=== PATIENT | male | born 1985 | race Caucasian/White ===

== ENCOUNTER 2017-05-12 16:00 | Inpatient (IN) | payer SELFPAY ==
[~2017-05-12] VITALS: Ht 182.9 cm; Wt 73.5 kg
[2017-05-12 16:21] VITALS: BP 145/100
[2017-05-12] MEDS ORDERED: CLON0.5T PO (16:23)
[2017-05-12] MEDS ORDERED: MVI, ADULT NO.4 WITH VIT K 10 ML, FOLIC ACID 1 MG, THIAMINE 100 MG in IV NORMAL SALINE ... IV ONE ×4 (16:30)
[2017-05-12] MEDS ORDERED: LORazepam 1 MG TABLET PO PRN ×2 (16:30)
[2017-05-12] MEDS ORDERED: LORazepam 2 MG/ML VIAL IV PRN ×4 (16:30)
[2017-05-12] MEDS: IV NORMAL SALINE 1,000ML 1,000 ML IV SCH ×2 (16:30→23:46)
[2017-05-12] MEDS: LORazepam 2 MG/ML VIAL IV PRN ×2 (16:50→21:54)
[2017-05-12 17:00] VITALS: BP 127/86
[2017-05-12 17:20] LABS: BASO # 0.1 x10^3/uL (0.0-0.2); BASO % 3 % (0-3); EOS % 1 % (0-3); HEMATOCRIT 45.7 % (39.0-53.0); HEMOGLOBIN 15.9 g/dL (13.0-17.5); LYMPH # 0.9 x10^3/uL (1.0-4.8); LYMPH % 45 % (24-48); MEAN CORPUSCULAR HEMOGLOBIN 35 pg (25-35); MEAN CORPUSCULAR HGB CONC 35 g/dL (31-37); MEAN CORPUSCULAR VOLUME 100 fL (79-100); MONO # 0.2 x10^3/uL (0.0-1.1); MONO % 11 % (0-9); NEUT # 0.9 x10^3uL (1.8-7.7); NEUT % 41 % (31-73); PLATELET COUNT 91 x10^3/uL (140-400); RED BLOOD COUNT 4.56 x10^6/uL (4.30-5.70); RED CELL DISTRIBUTION WIDTH 14.1 % (11.5-14.5); WHITE BLOOD COUNT 2.1 x10^3/uL (4.0-11.0)
[2017-05-12 17:38] LABS: ALBUMIN 4.4 g/dL (3.4-5.0); CALCIUM 8.8 mg/dL (8.5-10.1); CREATININE 0.8 mg/dL (0.7-1.3); GFR 112.8; MAGNESIUM 2.1 mg/dL (1.8-2.4); POTASSIUM 4.1 mmol/L (3.5-5.1); TOTAL BILIRUBIN 0.4 mg/dL (0.2-1.0); TOTAL PROTEIN 8.6 g/dL (6.4-8.2)
[2017-05-12] MEDS: MVI, ADULT NO.4 WITH VIT K 10 ML, THIAMINE 100 MG, FOLIC ACID 1 MG in IV NORMAL SALINE ... IV SCH ×4 (17:54)
[2017-05-12 18:00] VITALS: BP 106/62
[2017-05-12 19:30] LABS: BARBITURATES NEG (NEG); BENZODIAZEPINES NEG (NEG); CANNABINOIDS NEG (NEG); COCAINE NEG (NEG); METHADONE NEG (NEG); OPIATES NEG (NEG); PHENCYCLIDINE NEG (NEG)
[2017-05-12 19:31] LABS: AMPHETAMINE/METHAMPHETAMINE NEG (NEG)
[2017-05-12 21:12] LABS: % BANDS 1 % (0-9); % BASOS 1 % (0-3); % EOS 2 % (0-5); % LYMPHS 38 % (24-48); % MONOS 13 % (0-10); % SEGS 34 % (35-66)
[2017-05-12 21:20] LABS: PLT ESTIMATE DECREASED (ADEQUATE)
[2017-05-12 21:25] LABS: % ATYL 11 % (0-0)
[2017-05-12 21:35] VITALS: BP 141/87
[2017-05-12 21:35] LABS: CLARITY,URINE CLEAR; COLOR,URINE STRAW; GLUCOSE,URINE NEG (NEG)
[2017-05-12 21:40] LABS: BACTERIA,URINE 0 /HPF (0-FEW); BILIRUBIN,URINE NEG (NEG); NITRITE,URINE NEG (NEG); RBC,URINE 0 /HPF (0-2); UROBILINOGEN,URINE 0.2 mg/dL (0.2 mg/dL); WBC,URINE 0 /HPF (0-4)
[2017-05-12 22:35] VITALS: BP 114/88
[2017-05-12 23:35] VITALS: BP 109/65
[2017-05-13] VITALS (21 sets, daily range): BP systolic 96–172; BP diastolic 47–110
[2017-05-13] MEDS: LORazepam 2 MG/ML VIAL IV PRN ×9 (03:58→20:21)
[2017-05-13] MEDS: IV NORMAL SALINE 1,000ML 1,000 ML IV SCH ×3 (05:52→20:04)
[2017-05-13 07:02] LABS: BASO % 2 % (0-3); EOS % 1 % (0-3); HEMATOCRIT 41.1 % (39.0-53.0); HEMOGLOBIN 14.1 g/dL (13.0-17.5); LYMPH # 0.8 x10^3/uL (1.0-4.8); LYMPH % 47 % (24-48); MEAN CORPUSCULAR HEMOGLOBIN 35 pg (25-35); MEAN CORPUSCULAR HGB CONC 34 g/dL (31-37); MEAN CORPUSCULAR VOLUME 101 fL (79-100); MONO # 0.2 x10^3/uL (0.0-1.1); MONO % 10 % (0-9); NEUT # 0.7 x10^3uL (1.8-7.7); NEUT % 40 % (31-73); PLATELET COUNT 70 x10^3/uL (140-400); RED BLOOD COUNT 4.06 x10^6/uL (4.30-5.70); RED CELL DISTRIBUTION WIDTH 14.3 % (11.5-14.5)
[2017-05-13 07:04] LABS: CALCIUM 8.1 mg/dL (8.5-10.1); CREATININE 0.7 mg/dL (0.7-1.3); GFR 131.5; WHITE BLOOD COUNT 1.8 x10^3/uL (4.0-11.0)
[2017-05-13] MEDS ORDERED: PANTOPRAZOLE IV PUSH 40 MG VIAL. IVP SCH (07:30)
[2017-05-13] MEDS: PANTOPRAZOLE IV PUSH 40 MG VIAL. IVP SCH (08:26)
[2017-05-13] MEDS ORDERED: THIAMINE 100 MG in IV NORMAL SALINE 50ML 50 ML IV SCH (09:00)
[2017-05-13] MEDS ORDERED: THIAMINE IM 200 MG/2 ML VIAL. IM SCH (09:00)
[2017-05-13] MEDS ORDERED: MVI, ADULT NO.4 WITH VIT K 10 ML, THIAMINE 100 MG, FOLIC ACID 1 MG in IV NORMAL SALINE ... IV SCH ×8 (09:00)
[2017-05-13] MEDS ORDERED: FOLIC ACID 1 MG TABLET PO SCH (09:00)
[2017-05-13] MEDS ORDERED: MULTIVITAMIN with MINERAL TABLET. PO SCH (09:00)
[2017-05-13 09:18] LABS: % BANDS 2 % (0-9); % BASOS 3 % (0-3); % LYMPHS 49 % (24-48); % MONOS 11 % (0-10); % SEGS 35 % (35-66); PLT ESTIMATE DECREASED (ADEQUATE)
--- NOTE | 2017-05-13 09:38 | RAD ---
EXAM: Chest one view. HISTORY: Leukopenia, with overall. COMPARISON: None. FINDINGS: A frontal view of the chest is obtained. There are no confluent infiltrates. There is no pneumothorax or pleural effusion. The heart is not enlarged. IMPRESSION: 1. No confluent infiltrates.
[2017-05-13] MEDS: cloNIDine HCL 0.1 MG TABLET PO PRN ×3 (12:04→22:22)
[2017-05-13] MEDS: diphenhydrAMINE 50 MG/ML VIAL IVP PRN (12:05)
[2017-05-13] MEDS: MVI, ADULT NO.4 WITH VIT K 10 ML, THIAMINE 100 MG, FOLIC ACID 1 MG in IV NORMAL SALINE ... IV SCH ×4 (16:52)
[2017-05-13 19:26] LABS: CALCIUM 8.1 mg/dL (8.5-10.1); CREATININE 0.9 mg/dL (0.7-1.3); GFR 98.4; MAGNESIUM 1.6 mg/dL (1.8-2.4); POTASSIUM 3.8 mmol/L (3.5-5.1)
[2017-05-13] MEDS ORDERED: chlordiazePOXIDE HCL 25 MG CAPSULE PO PRN (21:15)
--- NOTE | 2017-05-13 21:38 | PDOC ---
Exam Basil Demential Exam: Basil Note: Please also refer to the separate dictated note~for this date of service dictated separately.~Patient seen individually. Discussed the patient with Nursing staff reviewed the chart.~Reviewed interim history and current functioning. Reviewed vital signs,~Labs/ Radiology~and current medications noted below. Continue current treatment with the changes noted in the dictated addendum note Assessment: Vital Signs: Vital Signs Date Time Temp Pulse Resp B/P (MAP) Pulse Ox O2 Delivery O2 Flow Rate FiO2 05/13/17 20:00 65 20 172/106 (128) 99 Room Air 05/13/17 19:00 98.1 05/12/17 17:00 I&O Intake and Output 05/14/17 07:00 Intake Total 2093 ml Output Total 600 ml Balance 1493 ml Intake Oral 390 ml IV Total 1703 ml Output Urine Total 600 ml Labs: Laboratory Tests Test 05/13/17 05:48 05/13/17 08:03 05/13/17 10:34 05/13/17 12:02 White Blood Count 1.8 x10^3/uL (4.0-11.0) *L Red Blood Count 4.06 x10^6/uL (4.30-5.70) L Hemoglobin 14.1 g/dL (13.0-17.5) Hematocrit 41.1 % (39.0-53.0) Mean Corpuscular Volume 101 fL (79-100) H Mean Corpuscular Hemoglobin 35 pg (25-35) Mean Corpuscular Hemoglobin Concent 34 g/dL (31-37) Red Cell Distribution Width 14.3 % (11.5-14.5) Platelet Count 70 x10^3/uL (140-400) L Neutrophils (%) (Auto) 40 % (31-73) Lymphocytes (%) (Auto) 47 % (24-48) Monocytes (%) (Auto) 10 % (0-9) H Eosinophils (%) (Auto) 1 % (0-3) Basophils (%) (Auto) 2 % (0-3) Neutrophils # (Auto) 0.7 x10^3uL (1.8-7.7) L Lymphocytes # (Auto) 0.8 x10^3/uL (1.0-4.8) L Monocytes # (Auto) 0.2 x10^3/uL (0.0-1.1) Eosinophils # (Auto) 0.0 x10^3/uL (0.0-0.7) Basophils # (Auto) 0.0 x10^3/uL (0.0-0.2) Segmented Neutrophils % 35 % (35-66) Band Neutrophils % 2 % (0-9) Lymphocytes % 49 % (24-48) H Monocytes % 11 % (0-10) H Basophils % 3 % (0-3) Platelet Estimate Decreased (ADEQUATE) Large Platelets Occ Macrocytosis Slight Sodium Level 142 mmol/L (136-145) Potassium Level 4.0 mmol/L (3.5-5.1) Chloride Level 105 mmol/L (98-107) Carbon Dioxide Level 27 mmol/L (21-32) Anion Gap 10 (6-14) Blood Urea Nitrogen 7 mg/dL (8-26) L Creatinine 0.7 mg/dL (0.7-1.3) Estimated GFR (Cockcroft-Gault) 131.5 Glucose Level 73 mg/dL (70-99) Calcium Level 8.1 mg/dL (8.5-10.1) L Lactic Acid Level 2.4 mmol/L (0.4-2.0) H 3.1 mmol/L (0.4-2.0) H Ammonia 19 mcmol/L (11-34) Test 05/13/17 17:05 05/13/17 19:05 05/13/17 20:12 Creatine Kinase 209 U/L (39-308) Creatine Kinase MB (Mass) 0.5 ng/mL (0.0-3.6) Creatine Kinase MB Relative Index 0.2 % (0-4) Troponin I Quantitative < 0.017 ng/mL (0-0.055) Sodium Level 138 mmol/L (136-145) Potassium Level 3.8 mmol/L (3.5-5.1) Chloride Level 102 mmol/L (98-107) Carbon Dioxide Level 30 mmol/L (21-32) Anion Gap 6 (6-14) Blood Urea Nitrogen 8 mg/dL (8-26) Creatinine 0.9 mg/dL (0.7-1.3) Estimated GFR (Cockcroft-Gault) 98.4 Glucose Level 111 mg/dL (70-99) H Calcium Level 8.1 mg/dL (8.5-10.1) L Magnesium Level 1.6 mg/dL (1.8-2.4) L Lactic Acid Level 1.4 mmol/L (0.4-2.0) Current Medications: Meds: Current Medications Multivitamins/ Minerals 10 ml/ Folic Acid 1 mg/ Thiamine HCl 100 mg/Sodium Chloride 1,011.2 ml @ 0 mls/hr 1X ONCE IV ; Start 05/12/17 at 16:30; Stop 05/12/17 at 17:19; Status DC Multivitamins/ Minerals 10 ml/ Thiamine HCl 100 mg/Folic Acid 1 mg/Sodium Chloride 1,011.2 ml @ 100 mls/ hr DAILY IV ; Start 05/13/17 at 09:00; Stop 05/13/17 at 09:00; Status DC Lorazepam (Ativan) 2 mg PRN Q1HR PRN IV For CIWA 8-14 Last administered on 05/13t 20:21; Start 05/12/17 at 16:30 Lorazepam (Ativan) 4 mg PRN Q1HR PRN IV For CIWA 15 or greater Last administered on 05/13/17t 15:13; Start 05/12/17 at 16:30 Pantoprazole Sodium (Protonix Vial) 40 mg DAILYAC IVP ; Start 05/13/17 at 07:30 ; Stop 05/13/17 at 07:30; Status DC Multivitamins/ Minerals 10 ml/ Thiamine HCl 100 mg/Folic Acid 1 mg/Sodium Chloride 1,011.2 ml @ 100 mls/ hr DAILY IV ; Start 05/13/17 at 09:00; Stop 05/13/17 at 09:00; Status DC Multivitamins/ Calcium (Thera-M Plus) 1 tab DAILY PO ; Start 05/13/17 at 09:00; Stop 05/13/17 at 09:00; Status DC Folic Acid (Folic Acid) 1 mg DAILY PO ; Start 05/13/17 at 09:00; Stop 05/13/17 at 09:00; Status DC Thiamine HCl 100 mg DAILY IM ; Start 05/13/17 at 09:00; Stop 05/13/17 at 09:00; Status DC Thiamine HCl 100 mg/Sodium Chloride 51 ml @ 100 mls/hr DAILY IV ; Start at 09:00; Stop 05/13/17 at 09:00; Status DC Lorazepam (Ativan) 4 mg PRN Q1HR PRN PO For CIWA 8-14; Start 05/12/17 at 16:30 ; Stop 05/12/17 at 17:20; Status DC Lorazepam (Ativan) 8 mg PRN Q1HR PRN PO For CIWA 15 or greater; Start 05/12/17 at 16:30; Stop 05/12/17 at 17:21; Status DC Lorazepam (Ativan) 2 mg PRN Q1HR PRN IV For CIWA 8-14; Start 05/12/17 at 16:30 ; Stop 05/12/17 at 17:22; Status DC Lorazepam (Ativan) 4 mg PRN Q1HR PRN IV For CIWA 15 or greater; Start 05/12/17 at 16:30; Stop 05/12/17 at 17:21; Status DC Haloperidol Lactate (Haldol) 5 mg PRN Q4HRS PRN IM Hallucinatns,Confusn, Delirium; Start 05/12/17 at 16:30 Diphenhydramine HCl (Benadryl) 25 mg PRN Q15MIN PRN IVP EPS symptoms 2'Haldol admin Last administered on 05/13/17 12:05; Start 05/12/17 at 16:30 Clonidine HCl (Catapres) 0.1 mg PRN Q1HR PRN PO SBP>180 OR DBP>100, MR X 3 Last administered on 05/13/17 18:11; Start 05/12/17 at 16:30 Lorazepam (Ativan) 2 mg PRN Q15MIN PRN IV COMM Last administered on 05/12/17 21:52; Start 05/12/17 at 16:30 Lorazepam (Ativan) 2 mg PRN Q15MIN PRN IV COMM; Start 05/12/17 at 16:30; Stop 05/12/17 at 17:04; Status DC Diazepam (Valium) 5 mg PRN Q5MIN PRN IV COMM; Start 05/12/17 at 16:30; Stop at 17:11; Status DC Diazepam (Valium) 10 mg PRN Q5MIN PRN IV COMM; Start 05/12/17 at 16:30; Stop 05/12/17 at 17:11; Status DC Lorazepam 100 mg/ Sodium Chloride 150 ml @ 3 mls/hr CONT PRN IV PROTOCOL; Start 05/12/17 at 16:30; Stop 05/12/17 at 17:10; Status DC Sodium Chloride 1,000 ml @ 150 mls/hr Q6H40M IV Last administered on 20:04; Start 05/12/17 at 16:30 Pantoprazole Sodium (Protonix Vial) 40 mg DAILYAC IVP Last administered on 05/13 08:26; Start 05/13/17 at 07:30 Multivitamins/ Minerals 10 ml/ Thiamine HCl 100 mg/Folic Acid 1 mg/Sodium Chloride 1,011.2 ml @ 100 mls/ hr Q24H IV Last administered on 05/13/17 16:52 ; Start 05/12/17 at 18:00 Ceftriaxone Sodium 1 gm/ Sodium Chloride 50 ml @ 100 mls/hr Q24H IV Last administered on 05/13/17 09:20; Start 05/13/17 at 09:00 Levofloxacin/ Dextrose 150 ml @ 150 mls/hr Q24H IV ; Start 05/13/17 at 09:00; Status Cancel Levofloxacin/ Dextrose 150 ml @ 150 mls/hr Q24H IV Last administered on 09:20; Start 05/13/17 at 10:00 Chlordiazepoxide (Librium) 25 mg PRN Q6HRS PRN PO WITHDRAWAL IRRITABILITY Last administered on 05/13/17 21:30; Start 05/13/17 at 21:15 Active Scripts Active Reported Klonopin (Clonazepam) 0.5 Mg Tablet 1 Tab PO DAILY Diagnosis: Problems: (1) Alcohol abuse JOHANNA BEJARANO MD May 13, 2017 21:38
[2017-05-13] MEDS: HALOPERIDOL LACT 5 MG/ML VIAL. IM PRN (22:23)
[2017-05-14] VITALS (20 sets, daily range): BP systolic 137–172; BP diastolic 84–110
[2017-05-14] MEDS: IV NORMAL SALINE 1,000ML 1,000 ML IV SCH ×3 (02:06→11:10)
[2017-05-14] MEDS: cloNIDine HCL 0.1 MG TABLET PO PRN ×2 (02:07→06:07)
[2017-05-14 06:28] LABS: BASO % 1 % (0-3); EOS % 1 % (0-3); HEMATOCRIT 39.9 % (39.0-53.0); LYMPH # 0.8 x10^3/uL (1.0-4.8); LYMPH % 32 % (24-48); MEAN CORPUSCULAR HEMOGLOBIN 35 pg (25-35); MEAN CORPUSCULAR HGB CONC 35 g/dL (31-37); MEAN CORPUSCULAR VOLUME 100 fL (79-100); MONO # 0.3 x10^3/uL (0.0-1.1); MONO % 11 % (0-9); NEUT # 1.4 x10^3uL (1.8-7.7); NEUT % 54 % (31-73); PLATELET COUNT 58 x10^3/uL (140-400); RED CELL DISTRIBUTION WIDTH 13.6 % (11.5-14.5); WHITE BLOOD COUNT 2.5 x10^3/uL (4.0-11.0)
[2017-05-14 06:31] LABS: CALCIUM 8.2 mg/dL (8.5-10.1); CREATININE 0.8 mg/dL (0.7-1.3); GFR 112.8; POTASSIUM 3.6 mmol/L (3.5-5.1)
[2017-05-14] MEDS: LORazepam 2 MG/ML VIAL IV PRN ×6 (07:25→23:32)
[2017-05-14] MEDS: PANTOPRAZOLE IV PUSH 40 MG VIAL. IVP SCH (07:25)
[2017-05-14] MEDS: chlordiazePOXIDE HCL 25 MG CAPSULE PO PRN ×5 (07:26→20:54)
[2017-05-14] MEDS ORDERED: MAGNESIUM CHLORIDE ER 64 MG TABLET.ER PO SCH (09:00)
--- NOTE | 2017-05-14 09:17 | PDOC2 ---
CONSULT Date of Admission DATE: 05/14/17 TIME: 09:03 History of Present Illness Mr Eubanks is a 31 year old male admitted for ETOH detox. Last pm while up to commode he was noted to be tachycardic so consult was called. This am he is resting quietly in sinus rhythm. He recently received libruim and ativan and is sedated so unable to give history. Wakes easily but falls immediately back to sleep. History is given by his mother who is at bedside. He did state that he was lightheaded during the episode of elevated heart rate. Past Medical History anxiety, depression, ETOH abuse Past Surgical History tonsillectomy Family History father had HI in his 30's Social History non smoker, no illicit drugs, ETOH abuse Current Medications Current Medications Multivitamins/ Minerals 10 ml/ Folic Acid 1 mg/ Thiamine HCl 100 mg/Sodium Chloride 1,011.2 ml @ 0 mls/hr 1X ONCE IV ; Start 05/12/17 at 16:30; Stop 05/12/17 at 17:19; Status DC Multivitamins/ Minerals 10 ml/ Thiamine HCl 100 mg/Folic Acid 1 mg/Sodium Chloride 1,011.2 ml @ 100 mls/ hr DAILY IV ; Start 05/13/17 at 09:00; Stop 05/13/17 at 09:00; Status DC Lorazepam (Ativan) 2 mg PRN Q1HR PRN IV For CIWA 8-14 Last administered on 05/14t 07:25; Start 05/12/17 at 16:30 Lorazepam (Ativan) 4 mg PRN Q1HR PRN IV For CIWA 15 or greater Last administered on 05/13/17t 15:13; Start 05/12/17 at 16:30 Pantoprazole Sodium (Protonix Vial) 40 mg DAILYAC IVP ; Start 05/13/17 at 07:30 ; Stop 05/13/17 at 07:30; Status DC Multivitamins/ Minerals 10 ml/ Thiamine HCl 100 mg/Folic Acid 1 mg/Sodium Chloride 1,011.2 ml @ 100 mls/ hr DAILY IV ; Start 05/13/17 at 09:00; Stop 05/13/17 at 09:00; Status DC Multivitamins/ Calcium (Thera-M Plus) 1 tab DAILY PO ; Start 05/13/17 at 09:00; Stop 05/13/17 at 09:00; Status DC Folic Acid (Folic Acid) 1 mg DAILY PO ; Start 05/13/17 at 09:00; Stop 05/13/17 at 09:00; Status DC Thiamine HCl 100 mg DAILY IM ; Start 05/13/17 at 09:00; Stop 05/13/17 at 09:00; Status DC Thiamine HCl 100 mg/Sodium Chloride 51 ml @ 100 mls/hr DAILY IV ; Start at 09:00; Stop 05/13/17 at 09:00; Status DC Lorazepam (Ativan) 4 mg PRN Q1HR PRN PO For CIWA 8-14; Start 05/12/17 at 16:30 ; Stop 05/12/17 at 17:20; Status DC Lorazepam (Ativan) 8 mg PRN Q1HR PRN PO For CIWA 15 or greater; Start 05/12/17 at 16:30; Stop 05/12/17 at 17:21; Status DC Lorazepam (Ativan) 2 mg PRN Q1HR PRN IV For CIWA 8-14; Start 05/12/17 at 16:30 ; Stop 05/12/17 at 17:22; Status DC Lorazepam (Ativan) 4 mg PRN Q1HR PRN IV For CIWA 15 or greater; Start 05/12/17 at 16:30; Stop 05/12/17 at 17:21; Status DC Haloperidol Lactate (Haldol) 5 mg PRN Q4HRS PRN IM Hallucinatns,Confusn, Delirium Last administered on 05/13/17 22:23; Start 05/12/17 at 16:30 Diphenhydramine HCl (Benadryl) 25 mg PRN Q15MIN PRN IVP EPS symptoms 2'Haldol admin Last administered on 05/13/17 12:05; Start 05/12/17 at 16:30 Clonidine HCl (Catapres) 0.1 mg PRN Q1HR PRN PO SBP>180 OR DBP>100, MR X 3 Last administered on 05/14/17 06:07; Start 05/12/17 at 16:30 Lorazepam (Ativan) 2 mg PRN Q15MIN PRN IV COMM Last administered on 05/12/17 21:52; Start 05/12/17 at 16:30 Lorazepam (Ativan) 2 mg PRN Q15MIN PRN IV COMM; Start 05/12/17 at 16:30; Stop 05/12/17 at 17:04; Status DC Diazepam (Valium) 5 mg PRN Q5MIN PRN IV COMM; Start 05/12/17 at 16:30; Stop at 17:11; Status DC Diazepam (Valium) 10 mg PRN Q5MIN PRN IV COMM; Start 05/12/17 at 16:30; Stop 05/12/17 at 17:11; Status DC Lorazepam 100 mg/ Sodium Chloride 150 ml @ 3 mls/hr CONT PRN IV PROTOCOL; Start 05/12/17 at 16:30; Stop 05/12/17 at 17:10; Status DC Sodium Chloride 1,000 ml @ 150 mls/hr Q6H40M IV Last administered on 02:06; Start 05/12/17 at 16:30 Pantoprazole Sodium (Protonix Vial) 40 mg DAILYAC IVP Last administered on 05/14 07:25; Start 05/13/17 at 07:30 Multivitamins/ Minerals 10 ml/ Thiamine HCl 100 mg/Folic Acid 1 mg/Sodium Chloride 1,011.2 ml @ 100 mls/ hr Q24H IV Last administered on 05/13/17 16:52 ; Start 05/12/17 at 18:00 Ceftriaxone Sodium 1 gm/ Sodium Chloride 50 ml @ 100 mls/hr Q24H IV Last administered on 05/13/17 09:20; Start 05/13/17 at 09:00 Levofloxacin/ Dextrose 150 ml @ 150 mls/hr Q24H IV ; Start 05/13/17 at 09:00; Status Cancel Levofloxacin/ Dextrose 150 ml @ 150 mls/hr Q24H IV Last administered on 09:20; Start 05/13/17 at 10:00 Chlordiazepoxide (Librium) 25 mg PRN Q6HRS PRN PO WITHDRAWAL IRRITABILITY Last administered on 05/13/17 21:30; Start 05/13/17 at 21:15 Magnesium Chloride (Mag Delay) 64 mg DAILY PO ; Start 05/14/17 at 09:00 Chlordiazepoxide (Librium) 50 mg Q4HRS PRN PO ANXIETY / AGITATION Last administered on 05/14/17t 07:26; Start 05/14/17 at 07:30 Active Scripts Active Reported Klonopin (Clonazepam) 0.5 Mg Tablet 1 Tab PO DAILY Allergies: Coded Allergies: No Known Drug Allergies (Unverified , 05/12/17) Review of System unobtainable due to sedation General: No acute distress, Other (sedated) HEENT: Atraumatic Lungs: Other (Clear anteriorly) Heart: Regular rate, Normal S1, Normal S2, No murmurs, Other (no gallops, clicks or rubs) Abdomen: Normal bowel sounds, Soft Extremities: No cyanosis, No edema, Normal pulses Psych/Mental Status: Other (sedated) VITALS Vital Signs Date Time Temp Pulse Resp B/P (MAP) Pulse Ox O2 Delivery O2 Flow Rate FiO2 05/14/17 08:44 98.6 64 18 156/101 (119) 96 Room Air 05/12/17 17:00 Labs Laboratory Tests Test 05/12/17 16:15 05/12/17 16:20 05/12/17 16:45 05/13/17 05:48 Urine Collection Type Unknown Urine Color Straw Urine Clarity Clear Urine pH 5.5 Urine Specific Gibson <=1.005 Urine Protein Neg (NEG-TRACE) Urine Glucose (UA) Neg mg/dL (NEG) Urine Ketones (Stick) Neg mg/dL (NEG) Urine Blood Trace (NEG) Urine Nitrite Neg (NEG) Urine Bilirubin Neg (NEG) Urine Urobilinogen Dipstick 0.2 mg/dL (0.2 mg/dL) Urine Leukocyte Esterase Neg (NEG) Urine RBC 0 /HPF (0-2) Urine WBC 0 /HPF (0-4) Urine Squamous Epithelial Cells None /LPF Urine Bacteria 0 /HPF (0-FEW) Urine Opiates Screen Neg (NEG) Urine Methadone Screen Neg (NEG) Urine Barbiturates Neg (NEG) Urine Phencyclidine Screen Neg (NEG) Urine Amphetamine/Methamphetamine Neg (NEG) Urine Benzodiazepines Screen Neg (NEG) Urine Cocaine Screen Neg (NEG) Urine Cannabinoids Screen Neg (NEG) Urine Ethyl Alcohol Pos (NEG) Nasal Screen MRSA (PCR) Negative (Negative) White Blood Count 2.1 x10^3/uL (4.0-11.0) 1.8 x10^3/uL (4.0-11.0) Red Blood Count 4.56 x10^6/uL (4.30-5.70) 4.06 x10^6/uL (4.30-5.70) Hemoglobin 15.9 g/dL (13.0-17.5) 14.1 g/dL (13.0-17.5) Hematocrit 45.7 % (39.0-53.0) 41.1 % (39.0-53.0) Mean Corpuscular Volume 100 fL (79-100) 101 fL (79-100) Mean Corpuscular Hemoglobin 35 pg (25-35) 35 pg (25-35) Mean Corpuscular Hemoglobin Concent 35 g/dL (31-37) 34 g/dL (31-37) Red Cell Distribution Width 14.1 % (11.5-14.5) 14.3 % (11.5-14.5) Platelet Count 91 x10^3/uL (140-400) 70 x10^3/uL (140-400) Neutrophils (%) (Auto) 41 % (31-73) 40 % (31-73) Lymphocytes (%) (Auto) 45 % (24-48) 47 % (24-48) Monocytes (%) (Auto) 11 % (0-9) 10 % (0-9) Eosinophils (%) (Auto) 1 % (0-3) 1 % (0-3) Basophils (%) (Auto) 3 % (0-3) 2 % (0-3) Neutrophils # (Auto) 0.9 x10^3uL (1.8-7.7) 0.7 x10^3uL (1.8-7.7) Lymphocytes # (Auto) 0.9 x10^3/uL (1.0-4.8) 0.8 x10^3/uL (1.0-4.8) Monocytes # (Auto) 0.2 x10^3/uL (0.0-1.1) 0.2 x10^3/uL (0.0-1.1) Eosinophils # (Auto) 0.0 x10^3/uL (0.0-0.7) 0.0 x10^3/uL (0.0-0.7) Basophils # (Auto) 0.1 x10^3/uL (0.0-0.2) 0.0 x10^3/uL (0.0-0.2) Segmented Neutrophils % 34 % (35-66) 35 % (35-66) Band Neutrophils % 1 % (0-9) 2 % (0-9) Lymphocytes % 38 % (24-48) 49 % (24-48) Atypical Lymphocytes % (Manual) 11 % (0-0) Monocytes % 13 % (0-10) 11 % (0-10) Eosinophils % 2 % (0-5) Basophils % 1 % (0-3) 3 % (0-3) Platelet Estimate Decreased (ADEQUATE) Decreased (ADEQUATE) Macrocytosis Present Slight Sodium Level 141 mmol/L (136-145) 142 mmol/L (136-145) Potassium Level 4.1 mmol/L (3.5-5.1) 4.0 mmol/L (3.5-5.1) Chloride Level 99 mmol/L (98-107) 105 mmol/L (98-107) Carbon Dioxide Level 30 mmol/L (21-32) 27 mmol/L (21-32) Anion Gap 12 (6-14) 10 (6-14) Blood Urea Nitrogen 7 mg/dL (8-26) 7 mg/dL (8-26) Creatinine 0.8 mg/dL (0.7-1.3) 0.7 mg/dL (0.7-1.3) Estimated GFR (Cockcroft-Gault) 112.8 131.5 BUN/Creatinine Ratio 9 (6-20) Glucose Level 104 mg/dL (70-99) 73 mg/dL (70-99) Calcium Level 8.8 mg/dL (8.5-10.1) 8.1 mg/dL (8.5-10.1) Magnesium Level 2.1 mg/dL (1.8-2.4) Total Bilirubin 0.4 mg/dL (0.2-1.0) Aspartate Amino Transf (AST/SGOT) 281 U/L (15-37) Alanine Aminotransferase (ALT/SGPT) 187 U/L (16-63) Alkaline Phosphatase 45 U/L (46-116) Total Protein 8.6 g/dL (6.4-8.2) Albumin 4.4 g/dL (3.4-5.0) Albumin/Globulin Ratio 1.0 (1.0-1.7) Vitamin B12 Level 686 pg/mL (247-911) Serum Folate 13.34 ng/ml (3.2-20.0) Thyroxine (T4) 5.9 ug/dL (4.5-12.0) Large Platelets Occ Test 05/13/17 08:03 05/13/17 10:34 05/13/17 12:02 05/13/17 17:05 Lactic Acid Level 2.4 mmol/L (0.4-2.0) 3.1 mmol/L (0.4-2.0) Ammonia 19 mcmol/L (11-34) Creatine Kinase 209 U/L (39-308) Creatine Kinase MB (Mass) 0.5 ng/mL (0.0-3.6) Creatine Kinase MB Relative Index 0.2 % (0-4) Troponin I Quantitative < 0.017 ng/mL (0-0.055) Test 05/13/17 19:05 05/13/17 20:12 05/14/17 06:03 Sodium Level 138 mmol/L (136-145) 139 mmol/L (136-145) Potassium Level 3.8 mmol/L (3.5-5.1) 3.6 mmol/L (3.5-5.1) Chloride Level 102 mmol/L (98-107) 102 mmol/L (98-107) Carbon Dioxide Level 30 mmol/L (21-32) 30 mmol/L (21-32) Anion Gap 6 (6-14) 7 (6-14) Blood Urea Nitrogen 8 mg/dL (8-26) 7 mg/dL (8-26) Creatinine 0.9 mg/dL (0.7-1.3) 0.8 mg/dL (0.7-1.3) Estimated GFR (Cockcroft-Gault) 98.4 112.8 Glucose Level 111 mg/dL (70-99) 99 mg/dL (70-99) Calcium Level 8.1 mg/dL (8.5-10.1) 8.2 mg/dL (8.5-10.1) Magnesium Level 1.6 mg/dL (1.8-2.4) 1.7 mg/dL (1.8-2.4) Lactic Acid Level 1.4 mmol/L (0.4-2.0) White Blood Count 2.5 x10^3/uL (4.0-11.0) Red Blood Count 4.00 x10^6/uL (4.30-5.70) Hemoglobin 14.0 g/dL (13.0-17.5) Hematocrit 39.9 % (39.0-53.0) Mean Corpuscular Volume 100 fL (79-100) Mean Corpuscular Hemoglobin 35 pg (25-35) Mean Corpuscular Hemoglobin Concent 35 g/dL (31-37) Red Cell Distribution Width 13.6 % (11.5-14.5) Platelet Count 58 x10^3/uL (140-400) Neutrophils (%) (Auto) 54 % (31-73) Lymphocytes (%) (Auto) 32 % (24-48) Monocytes (%) (Auto) 11 % (0-9) Eosinophils (%) (Auto) 1 % (0-3) Basophils (%) (Auto) 1 % (0-3) Neutrophils # (Auto) 1.4 x10^3uL (1.8-7.7) Lymphocytes # (Auto) 0.8 x10^3/uL (1.0-4.8) Monocytes # (Auto) 0.3 x10^3/uL (0.0-1.1) Eosinophils # (Auto) 0.0 x10^3/uL (0.0-0.7) Basophils # (Auto) 0.0 x10^3/uL (0.0-0.2) Images CXR - no acute abn Assessment/Plan 1. SVT - on review of rhythm strips tachycardia appears more consistent with sinus tachycardia. 2. ETOH withdrawal 3. leukopenia 4. thrombocytopenia 5. hepatic insufficiency Will check echo and continue monitoring on telemetry. Most likely Sinus tachy is reactive. Withdrawal protocol as per PCP. Problems: SAVAGE SEE APRN May 14, 2017 09:17
[2017-05-14] MEDS ORDERED: MAGNESIUM SULFATE 1GM 100 ML IV ONE (09:45)
--- NOTE | 2017-05-14 15:17 | PDOC ---
Exam Basil Demential Exam: Basil Note: Please also refer to the separate dictated note~for this date of service dictated separately.~Patient seen individually. Discussed the patient with Nursing staff reviewed the chart.~Reviewed interim history and current functioning. Reviewed vital signs,~Labs/ Radiology~and current medications noted below. Continue current treatment with the changes noted in the dictated addendum note Assessment: Vital Signs: Vital Signs Date Time Temp Pulse Resp B/P (MAP) Pulse Ox O2 Delivery O2 Flow Rate FiO2 05/14/17 14:34 73 18 152/102 (119) 96 Room Air 05/14/17 12:25 98.2 05/12/17 17:00 I&O Intake and Output 05/15/17 07:00 Intake Total 2110 ml Output Total 1950 ml Balance 160 ml Intake Oral 960 ml IV Total 1150 ml Output Urine Total 1950 ml # Bowel Movements 1 Labs: Laboratory Tests Test 05/13/17 17:05 05/13/17 19:05 05/13/17 20:12 05/14/17 06:03 Creatine Kinase 209 U/L (39-308) Creatine Kinase MB (Mass) 0.5 ng/mL (0.0-3.6) Creatine Kinase MB Relative Index 0.2 % (0-4) Troponin I Quantitative < 0.017 ng/mL (0-0.055) Sodium Level 138 mmol/L (136-145) 139 mmol/L (136-145) Potassium Level 3.8 mmol/L (3.5-5.1) 3.6 mmol/L (3.5-5.1) Chloride Level 102 mmol/L (98-107) 102 mmol/L (98-107) Carbon Dioxide Level 30 mmol/L (21-32) 30 mmol/L (21-32) Anion Gap 6 (6-14) 7 (6-14) Blood Urea Nitrogen 8 mg/dL (8-26) 7 mg/dL (8-26) L Creatinine 0.9 mg/dL (0.7-1.3) 0.8 mg/dL (0.7-1.3) Estimated GFR (Cockcroft-Gault) 98.4 112.8 Glucose Level 111 mg/dL (70-99) H 99 mg/dL (70-99) Calcium Level 8.1 mg/dL (8.5-10.1) L 8.2 mg/dL (8.5-10.1) L Magnesium Level 1.6 mg/dL (1.8-2.4) L 1.7 mg/dL (1.8-2.4) L Lactic Acid Level 1.4 mmol/L (0.4-2.0) White Blood Count 2.5 x10^3/uL (4.0-11.0) L Red Blood Count 4.00 x10^6/uL (4.30-5.70) L Hemoglobin 14.0 g/dL (13.0-17.5) Hematocrit 39.9 % (39.0-53.0) Mean Corpuscular Volume 100 fL (79-100) Mean Corpuscular Hemoglobin 35 pg (25-35) Mean Corpuscular Hemoglobin Concent 35 g/dL (31-37) Red Cell Distribution Width 13.6 % (11.5-14.5) Platelet Count 58 x10^3/uL (140-400) L Neutrophils (%) (Auto) 54 % (31-73) Lymphocytes (%) (Auto) 32 % (24-48) Monocytes (%) (Auto) 11 % (0-9) H Eosinophils (%) (Auto) 1 % (0-3) Basophils (%) (Auto) 1 % (0-3) Neutrophils # (Auto) 1.4 x10^3uL (1.8-7.7) L Lymphocytes # (Auto) 0.8 x10^3/uL (1.0-4.8) L Monocytes # (Auto) 0.3 x10^3/uL (0.0-1.1) Eosinophils # (Auto) 0.0 x10^3/uL (0.0-0.7) Basophils # (Auto) 0.0 x10^3/uL (0.0-0.2) Current Medications: Meds: Current Medications Multivitamins/ Minerals 10 ml/ Folic Acid 1 mg/ Thiamine HCl 100 mg/Sodium Chloride 1,011.2 ml @ 0 mls/hr 1X ONCE IV ; Start 05/12/17 at 16:30; Stop 05/12/17 at 17:19; Status DC Multivitamins/ Minerals 10 ml/ Thiamine HCl 100 mg/Folic Acid 1 mg/Sodium Chloride 1,011.2 ml @ 100 mls/ hr DAILY IV ; Start 05/13/17 at 09:00; Stop 05/13/17 at 09:00; Status DC Lorazepam (Ativan) 2 mg PRN Q1HR PRN IV For CIWA 8-14 Last administered on 05/14t 14:30; Start 05/12/17 at 16:30 Lorazepam (Ativan) 4 mg PRN Q1HR PRN IV For CIWA 15 or greater Last administered on 05/13/17t 15:13; Start 05/12/17 at 16:30 Pantoprazole Sodium (Protonix Vial) 40 mg DAILYAC IVP ; Start 05/13/17 at 07:30 ; Stop 05/13/17 at 07:30; Status DC Multivitamins/ Minerals 10 ml/ Thiamine HCl 100 mg/Folic Acid 1 mg/Sodium Chloride 1,011.2 ml @ 100 mls/ hr DAILY IV ; Start 05/13/17 at 09:00; Stop 05/13/17 at 09:00; Status DC Multivitamins/ Calcium (Thera-M Plus) 1 tab DAILY PO ; Start 05/13/17 at 09:00; Stop 05/13/17 at 09:00; Status DC Folic Acid (Folic Acid) 1 mg DAILY PO ; Start 05/13/17 at 09:00; Stop 05/13/17 at 09:00; Status DC Thiamine HCl 100 mg DAILY IM ; Start 05/13/17 at 09:00; Stop 05/13/17 at 09:00; Status DC Thiamine HCl 100 mg/Sodium Chloride 51 ml @ 100 mls/hr DAILY IV ; Start at 09:00; Stop 05/13/17 at 09:00; Status DC Lorazepam (Ativan) 4 mg PRN Q1HR PRN PO For CIWA 8-14; Start 05/12/17 at 16:30 ; Stop 05/12/17 at 17:20; Status DC Lorazepam (Ativan) 8 mg PRN Q1HR PRN PO For CIWA 15 or greater; Start 05/12/17 at 16:30; Stop 05/12/17 at 17:21; Status DC Lorazepam (Ativan) 2 mg PRN Q1HR PRN IV For CIWA 8-14; Start 05/12/17 at 16:30 ; Stop 05/12/17 at 17:22; Status DC Lorazepam (Ativan) 4 mg PRN Q1HR PRN IV For CIWA 15 or greater; Start 05/12/17 at 16:30; Stop 05/12/17 at 17:21; Status DC Haloperidol Lactate (Haldol) 5 mg PRN Q4HRS PRN IM Hallucinatns,Confusn, Delirium Last administered on 05/13/17 22:23; Start 05/12/17 at 16:30 Diphenhydramine HCl (Benadryl) 25 mg PRN Q15MIN PRN IVP EPS symptoms 2'Haldol admin Last administered on 05/13/17 12:05; Start 05/12/17 at 16:30 Clonidine HCl (Catapres) 0.1 mg PRN Q1HR PRN PO SBP>180 OR DBP>100, MR X 3 Last administered on 05/14/17 06:07; Start 05/12/17 at 16:30 Lorazepam (Ativan) 2 mg PRN Q15MIN PRN IV COMM Last administered on 05/12/17 21:52; Start 05/12/17 at 16:30 Lorazepam (Ativan) 2 mg PRN Q15MIN PRN IV COMM; Start 05/12/17 at 16:30; Stop 05/12/17 at 17:04; Status DC Diazepam (Valium) 5 mg PRN Q5MIN PRN IV COMM; Start 05/12/17 at 16:30; Stop at 17:11; Status DC Diazepam (Valium) 10 mg PRN Q5MIN PRN IV COMM; Start 05/12/17 at 16:30; Stop 05/12/17 at 17:11; Status DC Lorazepam 100 mg/ Sodium Chloride 150 ml @ 3 mls/hr CONT PRN IV PROTOCOL; Start 05/12/17 at 16:30; Stop 05/12/17 at 17:10; Status DC Sodium Chloride 1,000 ml @ 150 mls/hr Q6H40M IV Last administered on 11:10; Start 05/12/17 at 16:30 Pantoprazole Sodium (Protonix Vial) 40 mg DAILYAC IVP Last administered on 05/14 07:25; Start 05/13/17 at 07:30 Multivitamins/ Minerals 10 ml/ Thiamine HCl 100 mg/Folic Acid 1 mg/Sodium Chloride 1,011.2 ml @ 100 mls/ hr Q24H IV Last administered on 05/13/17 16:52 ; Start 05/12/17 at 18:00 Ceftriaxone Sodium 1 gm/ Sodium Chloride 50 ml @ 100 mls/hr Q24H IV Last administered on 05/14/17 09:26; Start 05/13/17 at 09:00 Levofloxacin/ Dextrose 150 ml @ 150 mls/hr Q24H IV ; Start 05/13/17 at 09:00; Status Cancel Levofloxacin/ Dextrose 150 ml @ 150 mls/hr Q24H IV Last administered on 09:26; Start 05/13/17 at 10:00 Chlordiazepoxide (Librium) 25 mg PRN Q6HRS PRN PO WITHDRAWAL IRRITABILITY Last administered on 05/13/17 21:30; Start 05/13/17 at 21:15 Magnesium Chloride (Mag Delay) 64 mg DAILY PO Last administered on 05/14/17 09 :25; Start 05/14/17 at 09:00 Chlordiazepoxide (Librium) 50 mg Q4HRS PRN PO ANXIETY / AGITATION Last administered on 05/14/17 11:07; Start 05/14/17 at 07:30; Stop 05/14/17 at 14:24 ; Status DC Magnesium Sulfate/ Dextrose 100 ml @ 100 mls/hr 1X ONCE IV Last administered on 05/14/17 09:25; Start 05/14/17 at 09:45; Stop 05/14/17 at 10:44; Status DC Chlordiazepoxide (Librium) 50 mg PRN Q2HR PRN PO ANXIETY / AGITATION Last administered on 05/14/17 14:30; Start 05/14/17 at 14:30 Active Scripts Active Reported Klonopin (Clonazepam) 0.5 Mg Tablet 1 Tab PO DAILY Diagnosis: Problems: (1) Alcohol withdrawal syndrome (2) Alcohol dependence JOHANNA BEJARANO MD May 14, 2017 15:17
[2017-05-14] MEDS: MAGNESIUM OXIDE 400 MG TABLET PO SCH (15:30)
[2017-05-14] MEDS: MVI, ADULT NO.4 WITH VIT K 10 ML, THIAMINE 100 MG, FOLIC ACID 1 MG in IV NORMAL SALINE ... IV SCH ×4 (17:09)
[2017-05-14 20:07] LABS: EBNA IGG <18.0 U/mL (0.0-17.9)
--- NOTE | 2017-05-14 23:51 | PN ---
DATE: SUBJECTIVE: A 31-year-old gentleman in with alcohol withdrawal, was having severe DTs, although he is somewhat better this morning and has been sleeping very well. Dr. Miles was kind enough to see the patient. His white count was up to 2.5 from 1.8. PHYSICAL EXAMINATION: VITAL SIGNS: Blood pressure 156/100, respiratory rate 18, pulse 64, and afebrile. LUNGS: Diminished, but clear. CARDIOVASCULAR: Regular sinus rhythm. ABDOMEN: Soft, diffuse tenderness. No rebound or guarding. Positive bowel sounds. EXTREMITIES: No clubbing, cyanosis or edema. NEUROLOGIC: Baseline, he seems to be having less tremor and a little bit more than he has been. IMPRESSION: Delirium tremens, alcohol abuse, alcohol withdrawal, leukopenia. PLAN: Continue with banana bag, PT and OT, social work assistant to help place the patient for rehab. Discussed this with the patient's mother. KIMBERLY SHEN MD DR: ANJALI/ti JOB#: [id number] / [id number]
[2017-05-15] VITALS (14 sets, daily range): BP systolic 136–169; BP diastolic 81–115
--- NOTE | 2017-05-15 00:37 | PN ---
DATE: 05/13/2017 SUBJECTIVE: A 31-year-old male in with detox, alcohol abuse, having severe detox with tremors. The patient's white count has gone down to 1.8, hemoglobin 14.1 and 40. His platelet count still is on the low side of 70,000. We will go ahead and continue on IV antibiotic therapy, fluids. Also, Psych consult for his DTs. PHYSICAL EXAMINATION: VITAL SIGNS: Blood pressure 152/97, respirations 20, pulse 110, afebrile presently. Discussed with him and his mother present. LUNGS: Diminished but clear. CARDIOVASCULAR: Regular sinus rhythm. ABDOMEN: Soft, nontender. EXTREMITIES: No clubbing, cyanosis, or edema. NEUROLOGIC: Intact. We will go ahead and continue with IV fluids, IV antibiotic therapy. He will be on reverse isolation for now with his low white count. I will make further evaluation on him as indicated. Also consulted the Psych unit. IMPRESSION: Neutropenia alcohol abuse, delirium tremens, thrombocytopenia. Continue Clinical [place] Withdrawal Assessment protocol as well. KIMBERLY SHNE MD DR: ANJALI/ti JOB#: [id number] / [id number]
[2017-05-15] MEDS: chlordiazePOXIDE HCL 25 MG CAPSULE PO PRN ×6 (02:53→23:49)
[2017-05-15] MEDS: LORazepam 2 MG/ML VIAL IV PRN ×10 (02:53→23:49)
[2017-05-15] MEDS: IV NORMAL SALINE 1,000ML 1,000 ML IV SCH ×3 (04:30→11:10)
--- NOTE | 2017-05-15 04:46 | CONS ---
DATE OF CONSULTATION: 05/13/2017 PSYCHIATRIC CONSULTATION IDENTIFYING DATA: The patient is a 31-year-old male seen in ICU bed 5, [facility] for a psychiatric consult requested by Dr. Pepe on account of the patient's alcohol abuse withdrawal and to assist with his detox. The patient was seen individually in his room. His female friend was in the room and the patient requested she stay there during our visit. Discussed with nursing staff, reviewed the chart. CHIEF COMPLAINT: "I drink about 20 beers every day and about a fifth of whiskey. I have been to [facility] in [place] for treatment. I need some more Ativan as I am shaking." HISTORY OF PRESENT ILLNESS: The patient has a history of fairly significant and chronic alcohol abuse. He states he started abusing alcohol in his early teenage years or even before that within the context of alcohol abuse in his father, grandfather and paternal uncle. 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 He admits to having had 1 DUI at age 19, history of blackouts, shakes as part of his alcohol withdrawal from time to time. He has had seizure on one occasion as well. He has used marijuana in the past, but nothing on a regular basis. He admits to being somewhat anxious, depressed at times, but denies any clear psychotic symptoms, suicidal or homicidal ideation. No clear history of bipolar disorder. PAST PSYCHIATRIC HISTORY: As noted above and he is on no active outpatient psychiatric treatment at this time. PAST MEDICAL HISTORY: Positive for an episode of tachycardia last evening with some increased confusion. PAST SURGICAL HISTORY: Tonsillectomy. FAMILY HISTORY: [place] in father in his 30s. Family history of alcohol abuse noted above. SOCIAL HISTORY: The patient is single, uses alcohol as noted and marijuana occasionally. CURRENT PSYCHOTROPICS: MRAD was reviewed. He is on the detox protocol, received a banana bag, Librium is 25 mg q. 6 hours p.r.n., multivitamin with vitamin K, Rocephin, clonidine p.r.n., Librium p.r.n., Haldol and Ativan p.r.n., magnesium supplements, magnesium chloride ER 64 mg daily, which we will change to mag oxide 400 mg 3 times a day. He is a full code. DRUG ALLERGIES: Negative. MENTAL STATUS EXAM: The patient was seen individually evening of 05/13/2017. He is oriented to himself, situation, able to give a reasonable history though little forgetful at times. Somewhat sedated at times. Speech coherent, abstraction fair, computation impaired, language function intact. No clear psychotic symptoms, suicidal or homicidal ideation. Attention span short. Language function intact. LABORATORY DATA: Reviewed. IMPRESSION: Alcohol abuse dependence withdrawal, anxiety disorder, unspecified depressive disorder, unspecified. Rest diagnoses as above. PLAN: Change the magnesium supplements. Continue rest of the detox protocol. The patient would benefit from getting to a rehab facility and I will defer to Gabriella Weathers RN, rehabilitation caseworker to facilitate this. Dr. Pepe, thank you for the opportunity to participate in your patient's care. We will follow with you. MAN Jacey BEJARANO MD DR: ELDA/ti JOB#: [id number] / [id number]
[2017-05-15] MEDS: HALOPERIDOL LACT 5 MG/ML VIAL. IM PRN ×3 (04:51→20:55)
[2017-05-15 06:20] LABS: BASO % 0 % (0-3); EOS # 0.1 x10^3/uL (0.0-0.7); EOS % 2 % (0-3); HEMATOCRIT 39.3 % (39.0-53.0); HEMOGLOBIN 13.7 g/dL (13.0-17.5); LYMPH # 0.6 x10^3/uL (1.0-4.8); LYMPH % 21 % (24-48); MEAN CORPUSCULAR HEMOGLOBIN 35 pg (25-35); MEAN CORPUSCULAR HGB CONC 35 g/dL (31-37); MEAN CORPUSCULAR VOLUME 100 fL (79-100); MONO # 0.3 x10^3/uL (0.0-1.1); MONO % 10 % (0-9); NEUT # 2.1 x10^3uL (1.8-7.7); NEUT % 67 % (31-73); PLATELET COUNT 52 x10^3/uL (140-400); RED BLOOD COUNT 3.94 x10^6/uL (4.30-5.70); RED CELL DISTRIBUTION WIDTH 13.5 % (11.5-14.5); WHITE BLOOD COUNT 3.1 x10^3/uL (4.0-11.0)
[2017-05-15 06:28] LABS: CALCIUM 8.7 mg/dL (8.5-10.1); CREATININE 0.8 mg/dL (0.7-1.3); GFR 112.8; POTASSIUM 3.2 mmol/L (3.5-5.1)
[2017-05-15] MEDS ORDERED: POTASSIUM CHLORIDE 20 MEQ TABLET.ER. PO ONE (08:00)
[2017-05-15] MEDS: PANTOPRAZOLE IV PUSH 40 MG VIAL. IVP SCH (08:41)
[2017-05-15] MEDS: MAGNESIUM OXIDE 400 MG TABLET PO SCH ×3 (08:41→16:30)
[2017-05-15] MEDS: POTASSIUM CHLORIDE 20 MEQ TABLET.ER. PO SCH (09:00)
[2017-05-15 09:07] LABS: ALBUMIN 3.8 g/dL (3.4-5.0); DIRECT BILIRUBIN 0.2 mg/dL (0.0-0.2); TOTAL PROTEIN 7.4 g/dL (6.4-8.2)
[2017-05-15] MEDS: amLODIPine BESYLATE 5 MG TABLET PO SCH (09:12)
--- NOTE | 2017-05-15 12:18 | EKG ---
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
[2017-05-15] MEDS: MVI, ADULT NO.4 WITH VIT K 10 ML, THIAMINE 100 MG, FOLIC ACID 1 MG in IV NORMAL SALINE ... IV SCH ×4 (17:33)
[2017-05-15] MEDS: diphenhydrAMINE 50 MG/ML VIAL IVP PRN (19:46)
[2017-05-16] VITALS (10 sets, daily range): BP systolic 119–158; BP diastolic 71–105
[2017-05-16] MEDS: HALOPERIDOL LACT 5 MG/ML VIAL. IM PRN (01:13)
[2017-05-16] MEDS: LORazepam 2 MG/ML VIAL IV PRN ×3 (01:14→07:39)
--- NOTE | 2017-05-16 01:54 | PN ---
DATE: 05/15/2017 SUBJECTIVE: A 31-year-old gentleman. The patient otherwise recovering from alcohol withdrawal, still having hallucinations, still very weak, difficulty in walking. Nurses noted agitation, pulling out IVs at times, but controlled with IV Haldol. PHYSICAL EXAMINATION: VITAL SIGNS: Blood pressure 168/99, respiratory rate 20, pulse 61, afebrile. LUNGS: Diminished, but clear. CARDIOVASCULAR: Stable. ABDOMEN: Soft, nontender. IMPRESSION: Delirium Tremens, alcohol withdrawal, alcoholism, leukopenia resolved up to 3.1, discussed with the family. They would continue along skilled care for this young man and make further evaluation on him. Discontinue any antibiotics since white count has come up and he is still requiring PT, OT and great deal of physical therapy and counseling on his alcohol, also abnormal liver enzymes, possible sclerosis consistent with his alcohol abuse. KIMBERLY SHEN MD DR: ANJALI/ti JOB#: [id number] / [id number]
--- NOTE | 2017-05-16 03:43 | PDOC ---
Exam Basil Demential Exam: Basil Note: Please also refer to the separate dictated note~for this date of service dictated separately.~Patient seen individually. Discussed the patient with Nursing staff reviewed the chart.~Reviewed interim history and current functioning. Reviewed vital signs,~Labs/ Radiology~and current medications noted below. Continue current treatment with the changes noted in the dictated addendum note Assessment: Vital Signs: Vital Signs Date Time Temp Pulse Resp B/P (MAP) Pulse Ox O2 Delivery O2 Flow Rate FiO2 05/16/17 02:55 92 24 131/84 (100) 97 Room Air 05/15/17 11:21 97.6 05/15/17 07:39 Labs: Laboratory Tests Test 05/15/17 05:46 White Blood Count 3.1 x10^3/uL (4.0-11.0) L Red Blood Count 3.94 x10^6/uL (4.30-5.70) L Hemoglobin 13.7 g/dL (13.0-17.5) Hematocrit 39.3 % (39.0-53.0) Mean Corpuscular Volume 100 fL (79-100) Mean Corpuscular Hemoglobin 35 pg (25-35) Mean Corpuscular Hemoglobin Concent 35 g/dL (31-37) Red Cell Distribution Width 13.5 % (11.5-14.5) Platelet Count 52 x10^3/uL (140-400) L Neutrophils (%) (Auto) 67 % (31-73) Lymphocytes (%) (Auto) 21 % (24-48) L Monocytes (%) (Auto) 10 % (0-9) H Eosinophils (%) (Auto) 2 % (0-3) Basophils (%) (Auto) 0 % (0-3) Neutrophils # (Auto) 2.1 x10^3uL (1.8-7.7) Lymphocytes # (Auto) 0.6 x10^3/uL (1.0-4.8) L Monocytes # (Auto) 0.3 x10^3/uL (0.0-1.1) Eosinophils # (Auto) 0.1 x10^3/uL (0.0-0.7) Basophils # (Auto) 0.0 x10^3/uL (0.0-0.2) Sodium Level 137 mmol/L (136-145) Potassium Level 3.2 mmol/L (3.5-5.1) L Chloride Level 102 mmol/L (98-107) Carbon Dioxide Level 25 mmol/L (21-32) Anion Gap 10 (6-14) Blood Urea Nitrogen 8 mg/dL (8-26) Creatinine 0.8 mg/dL (0.7-1.3) Estimated GFR (Cockcroft-Gault) 112.8 Glucose Level 92 mg/dL (70-99) Calcium Level 8.7 mg/dL (8.5-10.1) Magnesium Level 1.9 mg/dL (1.8-2.4) Total Bilirubin 1.0 mg/dL (0.2-1.0) Direct Bilirubin 0.2 mg/dL (0.0-0.2) Aspartate Amino Transferase (AST) 245 U/L (15-37) H Alanine Aminotransferase (ALT) 168 U/L (16-63) H Alkaline Phosphatase 40 U/L (46-116) L Total Protein 7.4 g/dL (6.4-8.2) Albumin 3.8 g/dL (3.4-5.0) Current Medications: Meds: Current Medications Multivitamins/ Minerals 10 ml/ Folic Acid 1 mg/ Thiamine HCl 100 mg/Sodium Chloride 1,011.2 ml @ 0 mls/hr 1X ONCE IV ; Start 05/12/17 at 16:30; Stop 05/12/17 at 17:19; Status DC Multivitamins/ Minerals 10 ml/ Thiamine HCl 100 mg/Folic Acid 1 mg/Sodium Chloride 1,011.2 ml @ 100 mls/ hr DAILY IV ; Start 05/13/17 at 09:00; Stop 05/13/17 at 09:00; Status DC Lorazepam (Ativan) 2 mg PRN Q1HR PRN IV For CIWA 8-14 Last administered on 05/15t 11:25; Start 05/12/17 at 16:30 Lorazepam (Ativan) 4 mg PRN Q1HR PRN IV For CIWA 15 or greater Last administered on 05/16/17t 01:14; Start 05/12/17 at 16:30 Pantoprazole Sodium (Protonix Vial) 40 mg DAILYAC IVP ; Start 05/13/17 at 07:30 ; Stop 05/13/17 at 07:30; Status DC Multivitamins/ Minerals 10 ml/ Thiamine HCl 100 mg/Folic Acid 1 mg/Sodium Chloride 1,011.2 ml @ 100 mls/ hr DAILY IV ; Start 05/13/17 at 09:00; Stop 05/13/17 at 09:00; Status DC Multivitamins/ Calcium (Thera-M Plus) 1 tab DAILY PO ; Start 05/13/17 at 09:00; Stop 05/13/17 at 09:00; Status DC Folic Acid (Folic Acid) 1 mg DAILY PO ; Start 05/13/17 at 09:00; Stop 05/13/17 at 09:00; Status DC Thiamine HCl 100 mg DAILY IM ; Start 05/13/17 at 09:00; Stop 05/13/17 at 09:00; Status DC Thiamine HCl 100 mg/Sodium Chloride 51 ml @ 100 mls/hr DAILY IV ; Start at 09:00; Stop 05/13/17 at 09:00; Status DC Lorazepam (Ativan) 4 mg PRN Q1HR PRN PO For CIWA 8-14; Start 05/12/17 at 16:30 ; Stop 05/12/17 at 17:20; Status DC Lorazepam (Ativan) 8 mg PRN Q1HR PRN PO For CIWA 15 or greater; Start 05/12/17 at 16:30; Stop 05/12/17 at 17:21; Status DC Lorazepam (Ativan) 2 mg PRN Q1HR PRN IV For CIWA 8-14; Start 05/12/17 at 16:30 ; Stop 05/12/17 at 17:22; Status DC Lorazepam (Ativan) 4 mg PRN Q1HR PRN IV For CIWA 15 or greater; Start 05/12/17 at 16:30; Stop 05/12/17 at 17:21; Status DC Haloperidol Lactate (Haldol) 5 mg PRN Q4HRS PRN IM Hallucinatns,Confusn, Delirium Last administered on 05/16/17 01:13; Start 05/12/17 at 16:30 Diphenhydramine HCl (Benadryl) 25 mg PRN Q15MIN PRN IVP EPS symptoms 2'Haldol admin Last administered on 05/15/17 19:46; Start 05/12/17 at 16:30 Clonidine HCl (Catapres) 0.1 mg PRN Q1HR PRN PO SBP>180 OR DBP>100, MR X 3 Last administered on 05/14/17 06:07; Start 05/12/17 at 16:30 Lorazepam (Ativan) 2 mg PRN Q15MIN PRN IV COMM Last administered on 05/12/17 21:52; Start 05/12/17 at 16:30 Lorazepam (Ativan) 2 mg PRN Q15MIN PRN IV COMM; Start 05/12/17 at 16:30; Stop 05/12/17 at 17:04; Status DC Diazepam (Valium) 5 mg PRN Q5MIN PRN IV COMM; Start 05/12/17 at 16:30; Stop at 17:11; Status DC Diazepam (Valium) 10 mg PRN Q5MIN PRN IV COMM; Start 05/12/17 at 16:30; Stop 05/12/17 at 17:11; Status DC Lorazepam 100 mg/ Sodium Chloride 150 ml @ 3 mls/hr CONT PRN IV PROTOCOL; Start 05/12/17 at 16:30; Stop 05/12/17 at 17:10; Status DC Sodium Chloride 1,000 ml @ 150 mls/hr Q6H40M IV Last administered on 05:53; Start 05/12/17 at 16:30; Stop 05/15/17 at 12:12; Status DC Pantoprazole Sodium (Protonix Vial) 40 mg DAILYAC IVP Last administered on 05/15 08:41; Start 05/13/17 at 07:30 Multivitamins/ Minerals 10 ml/ Thiamine HCl 100 mg/Folic Acid 1 mg/Sodium Chloride 1,011.2 ml @ 100 mls/ hr Q24H IV Last administered on 05/15/17 17:33 ; Start 05/12/17 at 18:00 Ceftriaxone Sodium 1 gm/ Sodium Chloride 50 ml @ 100 mls/hr Q24H IV Last administered on 05/14/17 09:26; Start 05/13/17 at 09:00; Stop 05/15/17 at 08:46 ; Status DC Levofloxacin/ Dextrose 150 ml @ 150 mls/hr Q24H IV ; Start 05/13/17 at 09:00; Status Cancel Levofloxacin/ Dextrose 150 ml @ 150 mls/hr Q24H IV Last administered on 09:26; Start 05/13/17 at 10:00; Stop 05/15/17 at 08:46; Status DC Chlordiazepoxide (Librium) 25 mg PRN Q6HRS PRN PO WITHDRAWAL IRRITABILITY Last administered on 05/13/17 21:30; Start 05/13/17 at 21:15; Stop 05/15/17 at 18:55 ; Status DC Magnesium Chloride (Mag Delay) 64 mg DAILY PO Last administered on 05/14/17 09 :25; Start 05/14/17 at 09:00; Stop 05/14/17 at 15:15; Status DC Chlordiazepoxide (Librium) 50 mg Q4HRS PRN PO ANXIETY / AGITATION Last administered on 05/14/17 11:07; Start 05/14/17 at 07:30; Stop 05/14/17 at 14:24 ; Status DC Magnesium Sulfate/ Dextrose 100 ml @ 100 mls/hr 1X ONCE IV Last administered on 05/14/17 09:25; Start 05/14/17 at 09:45; Stop 05/14/17 at 10:44; Status DC Chlordiazepoxide (Librium) 50 mg PRN Q2HR PRN PO ANXIETY / AGITATION Last administered on 05/15/17 11:00; Start 05/14/17 at 14:30 Magnesium Oxide (Magnesium Oxide) 400 mg TIDAC PO Last administered on 08:41; Start 05/14/17 at 16:30 Potassium Chloride (Klor-Con) 40 meq 1X ONCE PO Last administered on 08:41; Start 05/15/17 at 08:00; Stop 05/15/17 at 08:49; Status DC Potassium Chloride (Klor-Con) 20 meq DAILY PO ; Start 05/15/17 at 09:00 Amlodipine Besylate (Norvasc) 10 mg DAILY PO Last administered on 05/15/17 09: 12; Start 05/15/17 at 09:00 Chlordiazepoxide (Librium) 100 mg PRN Q4HRS PRN PO ANXIETY / AGITATION Last administered on 05/15/17 23:49; Start 05/15/17 at 19:00 Active Scripts Active Reported Klonopin (Clonazepam) 0.5 Mg Tablet 1 Tab PO DAILY Diagnosis: Problems: (1) Alcohol dependence (2) Alcohol withdrawal syndrome JOHANNA BEJARANO MD May 16, 2017 03:43
[2017-05-16 06:21] LABS: BASO % 1 % (0-3); EOS # 0.1 x10^3/uL (0.0-0.7); EOS % 2 % (0-3); HEMATOCRIT 39.3 % (39.0-53.0); HEMOGLOBIN 13.8 g/dL (13.0-17.5); LYMPH # 0.7 x10^3/uL (1.0-4.8); LYMPH % 20 % (24-48); MEAN CORPUSCULAR HEMOGLOBIN 35 pg (25-35); MEAN CORPUSCULAR HGB CONC 35 g/dL (31-37); MEAN CORPUSCULAR VOLUME 99 fL (79-100); MONO # 0.3 x10^3/uL (0.0-1.1); MONO % 10 % (0-9); NEUT # 2.2 x10^3uL (1.8-7.7); NEUT % 67 % (31-73); PLATELET COUNT 53 x10^3/uL (140-400); RED BLOOD COUNT 3.96 x10^6/uL (4.30-5.70); RED CELL DISTRIBUTION WIDTH 13.8 % (11.5-14.5); WHITE BLOOD COUNT 3.3 x10^3/uL (4.0-11.0)
[2017-05-16 06:33] LABS: ALBUMIN 3.9 g/dL (3.4-5.0); ALBUMIN/GLOBULIN RATIO 1.1 (1.0-1.7); CALCIUM 8.8 mg/dL (8.5-10.1); CREATININE 0.8 mg/dL (0.7-1.3); GFR 112.8; MAGNESIUM 1.8 mg/dL (1.8-2.4); POTASSIUM 3.1 mmol/L (3.5-5.1); TOTAL BILIRUBIN 0.8 mg/dL (0.2-1.0); TOTAL PROTEIN 7.5 g/dL (6.4-8.2)
[2017-05-16] MEDS ORDERED: POTASSIUM CHLORIDE 20 MEQ TABLET.ER. PO ONE (07:50)
[2017-05-16] MEDS: MAGNESIUM OXIDE 400 MG TABLET PO SCH ×3 (07:53→16:30)
[2017-05-16] MEDS: amLODIPine BESYLATE 5 MG TABLET PO SCH (07:53)
[2017-05-16] MEDS: POTASSIUM CHLORIDE 20 MEQ TABLET.ER. PO SCH ×3 (07:54→20:42)
[2017-05-16] MEDS: PANTOPRAZOLE IV PUSH 40 MG VIAL. IVP SCH (07:54)
[2017-05-16] MEDS: chlordiazePOXIDE HCL 25 MG CAPSULE PO PRN ×3 (08:35→20:43)
--- NOTE | 2017-05-16 08:43 | PN ---
DATE: 05/15/2017 This is a late entry for date of service 05/14/2017 and covers elements not covered in my initial note of 05/14/2017. I met with the patient the evening of 05/14/2017 and met with his father and mother as well. The patient is less tremulous, seems to be withdrawing gradually from the alcohol. We have changed his magnesium supplements to magnesium oxide 400 mg 3 times a day. We discussed his alcohol abuse at some length, options of naltrexone versus Antabuse, but not until he has been off all for alcohol for some time. MENTAL STATUS EXAM: Oriented to himself and situation. Speech coherent, abstraction fair, computation somewhat impaired. Attention span short. No suicidal or homicidal ideation. IMPRESSION: Unchanged from initial note. PLAN: Continue with alcohol detoxification, consider alcohol rehab transfer if possible. MAN Jacey BEJARANO MD DR: ELDA/ti JOB#: [id number] / [id number]
[2017-05-16] MEDS ORDERED: MULTIVITAMIN I-VITE TABLET. PO SCH (09:30)
[2017-05-16] MEDS: diazePAM 5 MG TABLET PO PRN ×3 (09:38→23:45)
[2017-05-16] MEDS: VITAMIN B COMPLEX CAPSULE. PO SCH (09:46)
[2017-05-16] MEDS: PROPRANOLOL 20 MG TABLET. PO SCH ×2 (09:47→20:42)
--- NOTE | 2017-05-16 09:56 | CARD ---
APPROVED REPORT EXAM: Two-dimensional and M-mode echocardiogram with Doppler and color Doppler. Other Information Quality : Good INDICATION LV Function:Systolic DX ETOH INTRODUCTION FOR DET 2D DIMENSIONS Left Atrium(2D)3.2 (1.6-4.0cm)IVSd1.4 (0.7-1.1cm) Aortic Root(2D)3.7 (2.0-3.7cm)LVDd4.0 (3.9-5.9cm) LVOT Diameter2.3 (1.8-2.4cm)PWd1.4 (0.7-1.1cm) LVDs2.6 (2.5-4.0cm)FS (%) 34.5 % SV43.7 mlLVEF(%)64.2 (>50%) Aortic Valve AoV Peak Dave.118.4cm/Skye Peak GR.5.6mmHg LVOT Peak Dave.112.0cm/sAVA (VMAX)3.95cm2 Mitral Valve MV E Btyozoue73.8cm/sMV DECEL [id number] MV A Keeoasib56.3cm/sE/A Ratio1.2 Tricuspid Valve TR P. [id number]/sRAP [id number] TR Peak Gr.[id number] LEFT VENTRICLE The left ventricle is normal size. There is mild to moderate concentric left ventricular hypertrophy. Left ventricle systolic function is normal. The Ejection Fraction is 55-60%. There is normal LV segm ental wall motion. The left ventricular diastolic function and filling is normal for age. RIGHT VENTRICLE The right ventricle is normal size. The right ventricular systolic function is normal. ATRIA The left atrium size is normal. The right atrium size is normal. The interatrial septum is intact wit h no evidence for an atrial septal defect or patent foramen ovale as noted on 2-D or Doppler imaging. AORTIC VALVE The aortic valve is normal in structure and function. Doppler and Color Flow revealed no significant aortic regurgitation. There is no significant aortic valvular stenosis. MITRAL VALVE The mitral valve is normal in structure and function. There is no evidence of mitral valve prolapse. There is no mitral valve stenosis. Doppler and Color Flow revealed no mitral valve regurgitation note d. TRICUSPID VALVE The tricuspid valve is normal in structure. Doppler and Color Flow revealed mild tricuspid regurgitat ion. The PA pressure was estimated at 17 mmHg. There is no tricuspid valve prolapse or vegetation. Th ere is no tricuspid valve stenosis. PULMONIC VALVE The pulmonary valve is normal in structure and function. Doppler and Color Flow revealed no pulmonic valvular regurgitation. There is no pulmonic valvular stenosis. GREAT VESSELS The aortic root is normal in size. The ascending aorta is normal in size. The IVC is normal in size a nd collapses >50% with inspiration. PERICARDIAL EFFUSION There is no pleural effusion. There is no evidence of significant pericardial effusion. Critical Notification Critical Value: No <Conclusion> Left ventricle systolic function is normal. The Ejection Fraction is 55-60%. There is normal LV segmental wall motion. Mild tricuspid regurgitation. The PA pressure was estimated at 17 mmHg. There is no evidence of significant pericardial effusion.
[2017-05-17 08:00] VITALS: BP 117/85
[2017-05-17] MEDS: VITAMIN B COMPLEX CAPSULE. PO SCH (08:49)
[2017-05-17] MEDS: MAGNESIUM OXIDE 400 MG TABLET PO SCH ×3 (08:50→17:08)
[2017-05-17] MEDS: POTASSIUM CHLORIDE 20 MEQ TABLET.ER. PO SCH ×2 (08:50→21:47)
[2017-05-17] MEDS: PROPRANOLOL 20 MG TABLET. PO SCH ×2 (08:51→21:47)
[2017-05-17 12:00] VITALS: BP 134/90
[2017-05-17] MEDS: chlordiazePOXIDE HCL 25 MG CAPSULE PO PRN ×3 (12:24→18:58)
[2017-05-17] MEDS: amLODIPine BESYLATE 5 MG TABLET PO SCH (12:31)
[2017-05-17 15:45] VITALS: BP 128/86
[2017-05-17] MEDS ORDERED: MAG HYDROX/AL HYDROX/SIMETH 30 ML ORAL.SUSP PO PRN (17:30)
[2017-05-17] MEDS ORDERED: LORazepam 1 MG TABLET PO PRN ×3 (18:45→19:00)
[2017-05-17 19:30] VITALS: BP 131/84
--- NOTE | 2017-05-17 19:47 | PDOC ---
Exam Note: Basil Note: Please also refer to the separate dictated note~for this date of service dictated separately.~Patient seen individually. Discussed the patient with Nursing staff reviewed the chart.~Reviewed interim history and current functioning. Reviewed vital signs,~Labs/ Radiology~and current medications noted below. Continue current treatment with the changes noted in the dictated addendum note Assessment: Vital Signs: Vital Signs Date Time Temp Pulse Resp B/P (MAP) Pulse Ox O2 Delivery O2 Flow Rate FiO2 05/17/17 19:30 98.0 104 22 131/84 (100) 98 Room Air 05/15/17 07:39 I&O Intake and Output 05/18/17 07:00 Intake Total 430 ml Balance 430 ml Intake Oral 430 ml Labs: Laboratory Tests Test 05/17/17 05:13 Potassium Level 3.4 mmol/L (3.5-5.1) L Current Medications: Meds: Current Medications Multivitamins/ Minerals 10 ml/ Folic Acid 1 mg/ Thiamine HCl 100 mg/Sodium Chloride 1,011.2 ml @ 0 mls/hr 1X ONCE IV ; Start 05/12/17 at 16:30; Stop 05/12/17 at 17:19; Status DC Multivitamins/ Minerals 10 ml/ Thiamine HCl 100 mg/Folic Acid 1 mg/Sodium Chloride 1,011.2 ml @ 100 mls/ hr DAILY IV ; Start 05/13/17 at 09:00; Stop 05/13/17 at 09:00; Status DC Lorazepam (Ativan) 2 mg PRN Q1HR PRN IV For CIWA 8-14 Last administered on 05/15t 11:25; Start 05/12/17 at 16:30; Stop 05/16/17 at 09:27; Status DC Lorazepam (Ativan) 4 mg PRN Q1HR PRN IV For CIWA 15 or greater Last administered on 05/16/17 07:39; Start 05/12/17 at 16:30; Stop 05/16/17 at 09: 27; Status DC Pantoprazole Sodium (Protonix Vial) 40 mg DAILYAC IVP ; Start 05/13/17 at 07:30 ; Stop 05/13/17 at 07:30; Status DC Multivitamins/ Minerals 10 ml/ Thiamine HCl 100 mg/Folic Acid 1 mg/Sodium Chloride 1,011.2 ml @ 100 mls/ hr DAILY IV ; Start 05/13/17 at 09:00; Stop 05/13/17 at 09:00; Status DC Multivitamins/ Calcium (Thera-M Plus) 1 tab DAILY PO ; Start 05/13/17 at 09:00; Stop 05/13/17 at 09:00; Status DC Folic Acid (Folic Acid) 1 mg DAILY PO ; Start 05/13/17 at 09:00; Stop 05/13/17 at 09:00; Status DC Thiamine HCl 100 mg DAILY IM ; Start 05/13/17 at 09:00; Stop 05/13/17 at 09:00; Status DC Thiamine HCl 100 mg/Sodium Chloride 51 ml @ 100 mls/hr DAILY IV ; Start at 09:00; Stop 05/13/17 at 09:00; Status DC Lorazepam (Ativan) 4 mg PRN Q1HR PRN PO For CIWA 8-14; Start 05/12/17 at 16:30 ; Stop 05/12/17 at 17:20; Status DC Lorazepam (Ativan) 8 mg PRN Q1HR PRN PO For CIWA 15 or greater; Start 05/12/17 at 16:30; Stop 05/12/17 at 17:21; Status DC Lorazepam (Ativan) 2 mg PRN Q1HR PRN IV For CIWA 8-14; Start 05/12/17 at 16:30 ; Stop 05/12/17 at 17:22; Status DC Lorazepam (Ativan) 4 mg PRN Q1HR PRN IV For CIWA 15 or greater; Start 05/12/17 at 16:30; Stop 05/12/17 at 17:21; Status DC Haloperidol Lactate (Haldol) 5 mg PRN Q4HRS PRN IM Hallucinatns,Confusn, Delirium Last administered on 05/16/17 01:13; Start 05/12/17 at 16:30 Diphenhydramine HCl (Benadryl) 25 mg PRN Q15MIN PRN IVP EPS symptoms 2'Haldol admin Last administered on 05/15/17 19:46; Start 05/12/17 at 16:30 Clonidine HCl (Catapres) 0.1 mg PRN Q1HR PRN PO SBP>180 OR DBP>100, MR X 3 Last administered on 05/14/17 06:07; Start 05/12/17 at 16:30 Lorazepam (Ativan) 2 mg PRN Q15MIN PRN IV COMM Last administered on 05/12/17 21:52; Start 05/12/17 at 16:30 Lorazepam (Ativan) 2 mg PRN Q15MIN PRN IV COMM; Start 05/12/17 at 16:30; Stop 05/12/17 at 17:04; Status DC Diazepam (Valium) 5 mg PRN Q5MIN PRN IV COMM; Start 05/12/17 at 16:30; Stop at 17:11; Status DC Diazepam (Valium) 10 mg PRN Q5MIN PRN IV COMM; Start 05/12/17 at 16:30; Stop 05/12/17 at 17:11; Status DC Lorazepam 100 mg/ Sodium Chloride 150 ml @ 3 mls/hr CONT PRN IV PROTOCOL; Start 05/12/17 at 16:30; Stop 05/12/17 at 17:10; Status DC Sodium Chloride 1,000 ml @ 150 mls/hr Q6H40M IV Last administered on 05:53; Start 05/12/17 at 16:30; Stop 05/15/17 at 12:12; Status DC Pantoprazole Sodium (Protonix Vial) 40 mg DAILYAC IVP Last administered on 07:54; Start 05/13/17 at 07:30; Stop 05/16/17 at 09:27; Status DC Multivitamins/ Minerals 10 ml/ Thiamine HCl 100 mg/Folic Acid 1 mg/Sodium Chloride 1,011.2 ml @ 100 mls/ hr Q24H IV Last administered on 05/15/17 17:33 ; Start 05/12/17 at 18:00; Stop 05/16/17 at 09:27; Status DC Ceftriaxone Sodium 1 gm/ Sodium Chloride 50 ml @ 100 mls/hr Q24H IV Last administered on 05/14/17 09:26; Start 05/13/17 at 09:00; Stop 05/15/17 at 08:46 ; Status DC Levofloxacin/ Dextrose 150 ml @ 150 mls/hr Q24H IV ; Start 05/13/17 at 09:00; Status Cancel Levofloxacin/ Dextrose 150 ml @ 150 mls/hr Q24H IV Last administered on 09:26; Start 05/13/17 at 10:00; Stop 05/15/17 at 08:46; Status DC Chlordiazepoxide (Librium) 25 mg PRN Q6HRS PRN PO WITHDRAWAL IRRITABILITY Last administered on 05/13/17 21:30; Start 05/13/17 at 21:15; Stop 05/15/17 at 18:55 ; Status DC Magnesium Chloride (Mag Delay) 64 mg DAILY PO Last administered on 05/14/17 09 :25; Start 05/14/17 at 09:00; Stop 05/14/17 at 15:15; Status DC Chlordiazepoxide (Librium) 50 mg Q4HRS PRN PO ANXIETY / AGITATION Last administered on 05/14/17 11:07; Start 05/14/17 at 07:30; Stop 05/14/17 at 14:24 ; Status DC Magnesium Sulfate/ Dextrose 100 ml @ 100 mls/hr 1X ONCE IV Last administered on 05/14/17 09:25; Start 05/14/17 at 09:45; Stop 05/14/17 at 10:44; Status DC Chlordiazepoxide (Librium) 50 mg PRN Q2HR PRN PO ANXIETY / AGITATION Last administered on 05/17/17 18:58; Start 05/14/17 at 14:30 Magnesium Oxide (Magnesium Oxide) 400 mg TIDAC PO Last administered on 17:08; Start 05/14/17 at 16:30 Potassium Chloride (Klor-Con) 40 meq 1X ONCE PO Last administered on 08:41; Start 05/15/17 at 08:00; Stop 05/15/17 at 08:49; Status DC Potassium Chloride (Klor-Con) 20 meq DAILY PO Last administered on 05/16/17 07:54; Start 05/15/17 at 09:00; Stop 05/16/17 at 09:27; Status DC Amlodipine Besylate (Norvasc) 10 mg DAILY PO Last administered on 05/17/17 12 :31; Start 05/15/17 at 09:00 Chlordiazepoxide (Librium) 100 mg PRN Q4HRS PRN PO ANXIETY / AGITATION Last administered on 05/17/17 12:24; Start 05/15/17 at 19:00 Potassium Chloride (Klor-Con) 20 meq 1X ONCE PO Last administered on 07:53; Start 05/16/17 at 07:50; Stop 05/16/17 at 07:52; Status DC Potassium Chloride (Klor-Con) 20 meq BID PO Last administered on 05/17/17 08: 50; Start 05/16/17 at 09:30 Diazepam (Valium) 10 mg Q6HRS PRN PO ANXIETY Last administered on 05/16/17 23 :45; Start 05/16/17 at 09:30; Stop 05/17/17 at 14:21; Status DC Multivitamins/ Minerals (I-Vince) 1 tab DAILY PO ; Start 05/16/17 at 09:30; Stop 05/16/17 at 09:38; Status DC Propranolol HCl (Inderal) 20 mg BID PO Last administered on 05/17/17 08:51; Start 05/16/17 at 09:30 Vitamin B Complex 1 cap DAILY PO Last administered on 05/17/17 08:49; Start 05/16/17 at 09:30 Sertraline HCl (Zoloft) 50 mg QHS PO ; Start 05/17/17 at 21:00 Al Hydroxide/Mg Hydroxide (Mylanta Plus Xs) 30 ml PRN Q2HR PRN PO DYSPEPSIA; Start 05/17/17 at 17:30 Lorazepam (Ativan) 2 mg PRN Q4HRS PRN PO ANXIETY / AGITATION; Start 05/17/17 at 18:45; Stop 05/17/17 at 18:53; Status DC Lorazepam (Ativan) 4 mg PRN Q1HR PRN PO For CIWA 8-14; Start 05/17/17 at 19:00 Lorazepam (Ativan) 8 mg PRN Q1HR PRN PO For CIWA 15 or greater; Start at 19:00 Active Scripts Active Reported Klonopin (Clonazepam) 0.5 Mg Tablet 1 Tab PO DAILY I have reviewed the current psychotropics carefully including drug interactions. Risk benefit ratio favors no change other than as noted in my dictated progress note. Diagnosis: Problems: (1) Alcohol dependence (2) Alcohol withdrawal syndrome JOHANNA BEJARANO MD May 17, 2017 19:47
[2017-05-17] MEDS: SERTRALINE 50 MG TABLET. PO SCH (21:47)
[2017-05-17 23:39] VITALS: BP 123/74
[2017-05-18 05:47] VITALS: BP 115/78
[2017-05-18 07:12] LABS: BASO % 0 % (0-3); EOS # 0.1 x10^3/uL (0.0-0.7); EOS % 1 % (0-3); HEMATOCRIT 39.6 % (39.0-53.0); HEMOGLOBIN 13.9 g/dL (13.0-17.5); LYMPH # 0.8 x10^3/uL (1.0-4.8); LYMPH % 15 % (24-48); MEAN CORPUSCULAR HEMOGLOBIN 35 pg (25-35); MEAN CORPUSCULAR HGB CONC 35 g/dL (31-37); MEAN CORPUSCULAR VOLUME 100 fL (79-100); MONO # 0.7 x10^3/uL (0.0-1.1); MONO % 12 % (0-9); NEUT # 4.2 x10^3uL (1.8-7.7); NEUT % 72 % (31-73); PLATELET COUNT 100 x10^3/uL (140-400); RED BLOOD COUNT 3.96 x10^6/uL (4.30-5.70); RED CELL DISTRIBUTION WIDTH 13.9 % (11.5-14.5); WHITE BLOOD COUNT 5.8 x10^3/uL (4.0-11.0)
[2017-05-18 07:26] LABS: CALCIUM 9.2 mg/dL (8.5-10.1); GFR 87.2; POTASSIUM 3.7 mmol/L (3.5-5.1); TOTAL BILIRUBIN 0.8 mg/dL (0.2-1.0)
[2017-05-18] MEDS: POTASSIUM CHLORIDE 20 MEQ TABLET.ER. PO SCH ×2 (08:55→20:43)
[2017-05-18] MEDS: MAGNESIUM OXIDE 400 MG TABLET PO SCH ×3 (08:55→17:32)
[2017-05-18] MEDS: VITAMIN B COMPLEX CAPSULE. PO SCH (08:55)
[2017-05-18] MEDS: amLODIPine BESYLATE 5 MG TABLET PO SCH (08:56)
[2017-05-18] MEDS: PROPRANOLOL 20 MG TABLET. PO SCH (08:57)
[2017-05-18 09:30] VITALS: BP 98/86
[2017-05-18] MEDS: chlordiazePOXIDE HCL 25 MG CAPSULE PO PRN (09:44)
--- NOTE | 2017-05-18 12:01 | PN ---
DATE: 05/17/2017 SUBJECTIVE: A 31-year-old male in ____ severe alcohol withdrawal. The patient is resting fairly comfortably. Mother is present always and discussed with her, he is still having some confusion, apparently little bit stronger, able to walk pretty much with minimal assistance. PHYSICAL EXAMINATION: VITAL SIGNS: Blood pressure is down to 130/90, respiratory rate 20, pulse anywhere from 70 to 90, he is afebrile, oxygen saturation 94%. LABORATORY DATA: The patient's white count is still hovering around 3.3, hemoglobin and hematocrit are remaining basically stable and the patient continues to eat fairly well, although he is still very confused at times, ____ very weak at the present time, mother trying to get him in for rehabilitation. Otherwise, his delirium tremens seems to be calming down. IMPRESSION: Alcoholic intoxication as well as alcohol abuse dependency withdrawal, anxiety disorder, depressive disorder. Continue to monitor the patient accordingly and took him off the Valium apparently, did not tolerate that very well. PLAN: Continue on the Librium and start him on antidepressant therapy and make further evaluation on him as indicated. KIMBERLY SHEN MD DR: ANJALI/ti JOB#: [id number] / [id number]
[2017-05-18 18:34] VITALS: BP 112/75
[2017-05-18] MEDS: SERTRALINE 50 MG TABLET. PO SCH (20:43)
[2017-05-18] MEDS ORDERED: traZODone 100 MG TABLET. PO SCH (21:00)
--- NOTE | 2017-05-19 02:41 | PN ---
DATE: 05/18/2017 SUBJECTIVE: The patient is a 31-year-old male with history of alcohol abuse, going through DTs, doing somewhat better, able to move around, still very weak on his legs, still having problems with visual hallucinations, having trouble sleeping. Otherwise, the patient seems to be doing reasonably well, able to carry out conservation for the first time with me since he has been here. OBJECTIVE: VITAL SIGNS: Blood pressure 130/70, respiratory rate 22, pulse 80, temperature 97.4. GENERAL: Ragged speech, but at least able to answer some questions. LUNGS: Clear. CARDIOVASCULAR: Stable. ABDOMEN: Soft, nontender. His blood pressure actually went down to approximately 100/86, pulse of 94 and so forth, but only need to do, we are going to hold off on his blood pressure pills. LABORATORY DATA: His labs show white count of 5.8, coming up nicely. Potassium is up to 3.7, BUN and creatinine stable. Liver enzymes also show marked improved. IMPRESSION: Alcohol withdrawal delirium tremens. PLAN: As above. KIMBERLY SHEN MD DR: ANJALI/ti JOB#: [id number] / [id number]
[2017-05-19 05:51] VITALS: BP 124/77
[2017-05-19 07:01] LABS: BASO % 1 % (0-3); EOS # 0.1 x10^3/uL (0.0-0.7); EOS % 2 % (0-3); LYMPH % 28 % (24-48); MEAN CORPUSCULAR HEMOGLOBIN 35 pg (25-35); MEAN CORPUSCULAR HGB CONC 35 g/dL (31-37); MEAN CORPUSCULAR VOLUME 100 fL (79-100); MONO # 0.6 x10^3/uL (0.0-1.1); MONO % 18 % (0-9); NEUT # 1.7 x10^3uL (1.8-7.7); NEUT % 51 % (31-73); PLATELET COUNT 114 x10^3/uL (140-400); RED BLOOD COUNT 3.69 x10^6/uL (4.30-5.70); WHITE BLOOD COUNT 3.4 x10^3/uL (4.0-11.0)
[2017-05-19 07:11] LABS: CALCIUM 8.9 mg/dL (8.5-10.1); CREATININE 0.9 mg/dL (0.7-1.3); GFR 98.4; POTASSIUM 3.7 mmol/L (3.5-5.1)
[2017-05-19] MEDS: POTASSIUM CHLORIDE 20 MEQ TABLET.ER. PO SCH (09:19)
[2017-05-19] MEDS: MAGNESIUM OXIDE 400 MG TABLET PO SCH ×2 (09:19→12:20)
[2017-05-19] MEDS: VITAMIN B COMPLEX CAPSULE. PO SCH (09:19)
[2017-05-19] MEDS ORDERED: TRAZ-90 PO (09:21)
[2017-05-19] MEDS ORDERED: CLON0.5T PO (09:21)
[2017-05-19] MEDS ORDERED: SERT50TA8 PO (09:21)
[2017-05-19] MEDS ORDERED: NALT50TA PO (09:21)
[2017-05-19] MEDS ORDERED: VITA1CAP PO (09:21)
[2017-05-19] MEDS: chlordiazePOXIDE HCL 25 MG CAPSULE PO PRN (12:27)
== END 2017-05-19 12:30 | disposition home or self-care (01) | DRG 897 ==
LOC: ICU 16:00 → 1 SOUTH 05-17 16:32
PROVIDERS: ADMIT Family Medicine; ATTEND Family Medicine
DX: F10.231 Alcohol dependence with withdrawal delirium (principal); D69.6 Thrombocytopenia, unspecified; D70.9 Neutropenia, unspecified; I47.1 Supraventricular tachycardia; F32.9 Major depressive disorder, single episode, unspecified; F41.9 Anxiety disorder, unspecified; Z81.1 Family history of alcohol abuse and dependence; Z82.49 Family history of ischemic heart disease and other diseases of the circulatory system
CPT/HCPCS: 36415; 71010; 80048; 80053; 80076; 80307; 81001; 82140; 82553; 82607; 82746; 83605; 83735; 84132; 84436; 84443; 84484; 85007; 85025; 86644; 86645; 86663; 86664; 87040; 87086; 87641; 93005; 93306; C9113; J0696; J1200; J1630; J1956; J2060; J3475; 97530; G0479; J7030